=== PATIENT | female | born 1965 | race Caucasian/White ===

== ENCOUNTER 2019-06-13 23:31 | Emergency (ER) | payer BC, SELFPAY ==
[2019-06-13 23:32] VITALS: BP 157/94; PULSE 106; RESP 15; TEMP 36.7; O2SAT 93; BMI 27.7
--- NOTE | 2019-06-13 23:43 | RAD_ITS ---
STUDY: X-RAY - RIGHT WRIST REASON FOR EXAM: Female, 54 years old. Fracture of the distal radius after recent injury. TECHNIQUE: 3 view(s) of the wrist were obtained. COMPARISON: Prior comparison studies are not available for review at this time. FINDINGS: There is demineralization of the radius and ulna. There is an acute comminuted displaced fracture of the distal radial metaphysis. The distal fracture fragments are displaced posteriorly. There is associated fracture of the ulnar styloid. Normal radiocarpal articulation. Normal distal radioulnar articulation. There is demineralization of the carpal bones. Normal carpal articulations. Normal carpometacarpal articulation of the thumb. Normal second through fifth carpometacarpal articulations. There is demineralization of the metacarpal bones. There is soft tissue swelling. RAD/Wrist min 3 Views IMPRESSION: Acute comminuted displaced fracture of distal radius with associated fracture of the ulnar styloid. Electronically Signed: Flor Padilla MD at 0:09 EDT , Service support ,
[2019-06-13 23:46] VITALS: RESP 16
--- NOTE | 2019-06-14 00:16 | ED.DCSUM_ITS ---
- ER Visit Summary Date of Service: 06/14/19 Chief Complaint: [Fall with right wrist injury] History of Present Illness: The patient is a 54 F [presents to the emergency department with complaint of injury to the right wrist. 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 Is right-hand dominant. She denies any other injuries. Patient has been drinking. Patient states that she drank more than she would normally drink. Patient feels intoxicated. Patient has history of rheumatoid arthritis and osteoporosis.] Physical Examination: [HEENT-PERRLA, EOMI. Cranial nerves II through XII grossly intact. TMs clear. Mucous membranes moist. No adenopathy. No external evidence of trauma to her head. No C-spine tenderness on palpation. Cardiovascular-regular rate and rhythm without murmur or ectopy Lungs-clear to auscultation, chest wall stable without crepitus or subcu emphysema Abdomen-normoactive bowel sounds, soft, nontender, no rebound or rigidity, no peritoneal signs. Extremities-intact ?4, normal range of motion, normal pulses. Right wrist- patient has obvious soft tissue swelling with obvious deformity. She is neurovascular intact. She has no open skin noted. Normal range of motion of all digits. No pain at the elbow.] Test Results: [X-rays of the right wrist obtained showed a acute fracture of the distal radius that is comminuted and displaced about 50% dorsally. Patient also has a fracture of the ulnar styloid.] Emergency Department Course and Treatment: [Patient case was discussed with orthopedic surgeon on-call who asked that we splint the patient and have her follow-up with his office in 2 days. I do not feel patient is a candidate for acute sedation given her recent food and alcohol intake.] Patient was placed in a volar splint. Patient was given a sling. She was given a dose of naproxen. Treatment Plan: [Patient to follow-up with orthopedics 2 days.] Disposition: [Discharged home in stable condition] Impression: [Right distal radius and ulna fracture] This note was generated with [employer] dictation software. It may contain incorrect words, spelling, and punctuation that were not noted in review of the chart prior to signing ED Disposition - Plan for ED Patient: Referrals: Earl Vines MD [Primary Care Provider] -
--- NOTE | 2019-06-14 00:19 | ED.DEP ---
ED Disposition - Plan for ED Patient: Instructions: COLLES FRACTURE, Reduction Required Prescriptions: Hydrocodone Bitart/Apap 5-325 [[place] 5MG-325MG] 1 tab PO Q4H PRN PRN 2 Days #20 tab PRN Reason: Pain Prescription Printed Referrals: Earl Vines MD [Primary Care Provider] - Romaine Mccoy DO [STAFF PHYSICIAN] - 06/15/19
[2019-06-14] MEDS: Naproxen 500 MG Tablet PO (00:25)
== END 2019-06-14 00:25 | disposition home or self-care (01) ==
LOC: ED 23:55
PROVIDERS: Emergency Provider Emergency Medicine; Family Provider Family Medicine; PCP Family Medicine
DX: S52.501A Unspecified fracture of the lower end of right radius, initial encounter for closed fracture (principal); S52.611A Displaced fracture of right ulna styloid process, initial encounter for closed fracture; M06.9 Rheumatoid arthritis, unspecified; Z87.891 Personal history of nicotine dependence; W18.30XA Fall on same level, unspecified, initial encounter; Y93.41 Activity, dancing; Y92.89 Other specified places as the place of occurrence of the external cause; Y99.8 Other external cause status
CPT/HCPCS: 73110; 99283

== ENCOUNTER 2019-08-03 16:00 | Outpatient (RCR) | payer BC, SELFPAY ==
--- NOTE | 2019-07-03 09:52 | HP.OTEVAL ---
Patient's Visit Information RICK CONSTANTINO is a 54 year old F, referred to Occupational Therapy by ZACK DE GUZMAN, with a diagnosis of right distal radius fx.. Date of Evaluation: 07/01/19 Occupational Therapist: Gina Ward, OTR/[place], CHT - Subjective Subjective: This 54 year old female was seen for OT eval with dx of right distal radius fracture. Pt states she had a fall on 2018 went to ER and was refered to hand specialist. Pt ended up with sx on 2018. ORIF of right distal radius fx, intraarticular and greater than 3 fragments. Pt has order to initiate gental short arc wrist AROM and progress motion as tolerated-*No lifting/pushing/pulling/weight bearing. Pt states she is limited with her ADLs due to her inability to use her right hand for ADls and IADLS. - ADLs Dressing: Underwear, Bra, Pants, Socks, Shoes Fasteners: Tie shoes, Buttons, Zippers, [place] Eating: Bring food to mouth, Use silverware, Cut food, Drink from glass Bathing: Handle washcloth & soap, Wash hair, Squeeze shampoo bottle Toileting: Manage clothing Grooming: Squeeze toothpaste on, [place] teeth Kitchen: Chop with knife, Peel fruits & vegetables, Open jars, Open bottle caps, Pour from pitcher, Lift saucepan, Take dish out of oven, Place dish in microwave Household: Sweep/mop, Dust, Laundry - Pain right wrist 4 Pain Intensity Range: 1, 6 - ROM Forearm: right supination 30* left WNL Wrist: right 35/30 left 75/80 Opposition: right 4, left 10 ROM Comments: pt demo with limited - Strength Principal Technologist: right NT left 20# Lateral Pinch: right NT left 10# Tripod Pinch: right NT left 10# Strength Comments: strength will be tested at later date - Edema PIP: right 6.0 left 5.4 Other: min. edema - Sensation Sensation Comments: denies - In-Hand Manipulation Finger to Palm Translation: Unable - Right, Normal - Left Palm to Finger Translation: Unable - Right, Normal - Left Shift: Unable - Right, Normal - Left Rotation: Unable - Right, Normal - Left - Quick DASH-Disab of Arm,Shoulder& Hand Quick DASH Score: 85.0000 - Goals Goal:100% adherence to protocol: Yes Comment: ORIF distal radius fx Goal:Daily scar massage when approriate: Yes Goal:ROM equal to unaffected hand: Yes Comment: to return to ind. ADls and IADLs by d/c Goal:Principal Technologist/Pinch strength at least 75% of unaffected hand: Yes Goal:No pain with affected hand use: Yes Goal:PIP Circumferences equal to unaffected hand: Yes Goal:Full use of affected hand in daily activities including: Yes Goal:Decrease scar hypersensitivity: Yes - Rehabilitation General Assessment: pt s/p 2 weeks ORIF of distal radius fx, intraarticular and greater than 3 fragments. Pt has newly healing structure, limited ROM, edema and decreased ability to use her right UE for ADLs and IADLS. Pt would benefit from skilled OT services 1-2x week for 8 weeks. Therapy will initiate gental short arc wrist AROM and progress pt as tolerated. When releases pt for increase activity therapy will initiate 2x week. Today therapist ed. pt on gentle short arch motion, scar mtg, desensitization and edema reduction tech. When appropriate therapy will progress per dr. lund and pts dottie. to return pt to PLOF. pt demo understanding of ex and agree to POC. Rehabilitation Potential: Excellent - Anticipated Interventions Anticipated Interventions: A/AAROM/PROM, Strengthening, Triggerpoint Release, Desensitization, Sensory Retraining, Wound Care, Modalities, Orthoses, Joint Protection/Energy Conservation - Visit Plan Frequency: 1-2x /Week Duration: 2 Months TEXT: Thank you for the opportunity to evaluate your patient. For Medicare and Medicare HMO plans, please review the plan of care and approve it. It will need to be FAXED BACK to us at [phone] for Medicare purposes. Please let me know if there are questions or concerns regarding this plan of care. Physician Signature: Date:
--- NOTE | 2019-10-05 12:28 | HP.OT.NRP ---
HP - Discharge Summary - Patient Information RICK CONSTANTINO was seen in my office for initial evaluation on 07/01/19. The following Plan of Care was established for this patient: Initial Frequency: 1-2x /Week Initial Duration: 2 Months Plan: will return after aug.24 if needed - Anticipated Interventions Anticipated Interventions: A/AAROM/PROM, Strengthening, Triggerpoint Release, Desensitization, Sensory Retraining, Wound Care, Modalities, Orthoses, Joint Protection/Energy Conservation This patient was last seen in our office 08/03/19. Pertinent comments regarding their Occupational therapy will appear below: pt was seen in OT for 6 tx session. Therapy focused on ROM and strength as well as decreasing pain. pt was progressing well with her POC. was last seen 08/03/19. Pt has not scheduled any further apts at this time and D/C due to time lapse in care. At this point I will be discontinuing this patient from occupational therapy. I would be happy to see this patient again in the future if found appropriate by the physician. Thank you! Gina Ward, OTR/L, CHT
== END 2019-08-03 19:00 | disposition home or self-care (01) ==
LOC: OT 16:00
PROVIDERS: Family Provider Family Medicine; PCP Family Medicine
DX: S52.501D Unspecified fracture of the lower end of right radius, subsequent encounter for closed fracture with routine healing (principal)
CPT/HCPCS: 97035; 97110; 97140; 97166

== ENCOUNTER → 2021-05-23 12:08 | Outpatient (CLI) | payer OTHER, SELFPAY ==
--- NOTE | 2021-05-23 12:34 | BD_ITS ---
STUDY: DUAL ENERGY X-RAY ABSORPTIOMETRY / DXA REASON FOR EXAM: Female, 56 years old. Osteoporosis TECHNIQUE: Bone Mineral Density (BMD) measurements of lumbar spine and bilateral hips were obtained. COMPARISON: None. FINDINGS: Lumbar Spine (L1-L4): g/cm2 (0.814) / T-score (-2.1) / Z-score (-1.0) Findings are suggestive of osteopenia with a high fracture risk. Left Femur Total: g/cm2 (0.554) / T-score (-3.2) / Z-score (-2.5) Left Femoral Neck: g/cm2 (0.4-2) / T-score (-3.8) / Z-score (-2.8) Right Femur Total: g/cm2 (0.524) / T-score (-3.4) / Z-score (-2.7) Right Femoral Neck: g/cm2 (0.418) / T-score (-3.9) / Z-score (-2.8) BD/Dexa Bone Density Study IMPRESSION: The patient is considered osteoporotic as outlined below according to World [place] Organization (WHO) criteria with a high fracture risk. Reference Information: The T-score is the number of standard deviations above or below the standard which is normal for young adults at their peak bone mineral density. The World Health Organization (WHO) interprets the T-scores as follows: Above -1 Normal bone density Between -1 and -2.5 Osteopenia Equal to / or below -2.5 Osteoporosis As a practical clinical guideline, osteopenia may be graded as follows: Mild -1 through -1.5 Moderate -1.6 through -2.0 Severe -2.1 through -2.4 The Z-score is the number of standard deviations above or below age-matched controls. A Z-score of less than -1.5 would be considered abnormal. References: 1. NIH Osteoporosis and Related Bone Diseases www osteo.org 2. International Society for Clinical Densitometry www iscd.org 3. National Osteoporosis Foundation www nof.org Electronically Signed: Lukas Aquino MD at 14:22 EDT , Service support ,
[2021-05-23 14:14] LABS: PTHIN 115.6 pg/mL (18.4-80.1)
[2021-05-23 14:17] LABS: T4 Free Direct 0.87 ng/dL (0.76-1.46); Thyroid Stim Hormone (TSH) 3.63 uIU/mL (0.358-3.74); Vitamin D,25 Hydroxy 44.6 ng/mL
[2021-05-25 13:49] LABS: Thyroid Peroxidase AB 367 IU/mL (0-34)
== END ==
PROVIDERS: Referring Provider Surgery; Visit Provider Internal Medicine Endocrinology, Diabetes & Metabolism
DX: M81.0 Age-related osteoporosis without current pathological fracture (principal); E21.3 Hyperparathyroidism, unspecified; E55.9 Vitamin D deficiency, unspecified
CPT/HCPCS: 36415; 77080; 82306; 82310; 83970; 84439; 84443; 86376

== ENCOUNTER → 2021-05-26 09:12 | Outpatient (CLI) | payer OTHER, SELFPAY ==
--- NOTE | 2021-05-26 09:18 | US_ITS ---
INDICATION: hyperparathyroidism EXAMINATION: Ultrasound US Thyroid (eg thyroid, parathyroid, parotid) INDICATION: hyperparathyroidism EXAMINATION: Ultrasound US Thyroid (eg thyroid, parathyroid, parotid) TECHNIQUE: Leger scale and color doppler imaging was performed of the thyroid gland. COMPARISON: None. FINDINGS: RIGHT THYROID LOBE: The right lobe of the thyroid gland is prominent in size demonstrates homogeneous echogenicity with increased vascularity, The right lobe of the thyroid gland measures 5.2 x 2.3 x 2.0 cm Multiple nodules are visualized within the right lobe of the thyroid gland the largest 4 are #1- Location: Upper pole Size: 0.9 x 0.7 x 0.6 cm Composition: 2 Echogenicity: 1 Shape: 0 Margins: 0 Echogenic Foci: 0 Total points 3, TIRADS level TR3 #2- Location: Upper pole Size: 1.5 x 1.4 x 1.2 cm. Composition: 2 Echogenicity: 1 Shape: 0 Margins: 0 Echogenic Foci: 0 Total points 3, TIRADS level TR3 #3- Location: Midpole. Size: 1.7 x 1.7 x 0.9 cm. Composition: 2 Echogenicity: 1 Shape: 0 Margins: 0 Echogenic Foci: 0 Total points 3, TIRADS level TR3 #4- Location: Midpole Size: 0.9 x 0.8 x 0.9 cm . Composition: 2 Echogenicity: 1 Shape: 0 Margins: 0 Echogenic Foci: 0 Total points 3, TIRADS level TR3 LEFT THYROID LOBE: The left lobe of the thyroid gland is unremarkable in size demonstrating heterogeneous echogenicity and increased vascularity. The left lobe of the thyroid gland measures 4.5 x 1.6 x 1.8 cm. 2 nodules are visualized within the left lobe. #5- Location: Lower pole Size: 1.2 x 1.0 x 1.6 cm Composition: 2 Echogenicity: 2 Shape: 0 Margins: 0 Echogenic Foci: 0 Total points 4, TIRADS level TR4 A mixed solid/cystic nodule is visualized in the lower pole of the left lobe demonstrating ovoid configuration and irregular/indistinct margins measuring 1.9 x 1.2 x 1.1 cm. #6- Location: lower pole Size: 0.8 x 0.7 x 0.4 cm Composition: 2 Echogenicity: 2 Shape: 0 Margins: 0 Echogenic Foci: 0 Total points 4, TIRADS level TR4 ISTHMUS: The isthmus demonstrates homogenous echogenicity and measures 0.3 cm in AP diameter. No evidence of nodules within the isthmus. US/Thyroid IMPRESSION: Enlargement of the right lobe of the thyroid gland. A 0.9 cm TR 3 nodule in the upper pole of the right lobe. A 1.5 cm TR 3 nodule in the upper pole of the right lobe. A 1.7 cm TR 3 nodule in the upper pole of the right lobe. A 0.9 cm TR 3 nodule in the upper pole of the right lobe. Mildly suspicious (3 ptsTR3) FNA biopsy if nodule at least 2.5cm; follow if at least 1.5cm at 1, 3 and 5 years A 1.6 cm TR 4 nodule visualized in the midpole of the left lobe. A 0.8 cm TR 4 nodule in the lower pole of the left lobe. Moderately suspicious (4 ptsTR4) FNA biopsy if nodule at least 1.5cm; follow if at least 1.0 cm at 1, 2,3 and 5 years TI-RADS follow up recommendations: TR1: Benign (0pts) No FNA biopsy. TR2: Not suspicious (2 pts) No FNA biopsy. TR3: Mildly suspicious (3 pts) FNA biopsy if nodule at least 2.5cm; follow if at least 1.5cm at 1, 3 and 5 years TR4: Moderately suspicious (4-6 pts) FNA biopsy if nodule at least 1.5cm; follow if at least 1 cm. TR5: Highly suspicious (at least 7 pts) FNA if nodule at least 1cm; follow if at least 0.5cm. Electronically Signed: Harish Miller MD at 12:23 EDT Tel , Service support ,
== END ==
PROVIDERS: Referring Provider Surgery; Visit Provider Surgery
DX: E21.3 Hyperparathyroidism, unspecified (principal)
CPT/HCPCS: 76536

== ENCOUNTER → 2021-06-02 07:47 | Outpatient (CLI) | payer OTHER, SELFPAY ==
--- NOTE | 2021-06-02 07:48 | NM_ITS ---
CLINICAL: 56-year-old female with reported history of clinical hyperparathyroidism. 99m Tc SESTAMIBI DUAL PHASE PLANAR and SPECT-CT PARATHYROID SCINTIGRAPHY COMPARISON: Thyroid ultrasound report 05/26/2021 FINDINGS: Following the intravenous administration of 25.0 mCi of 99m Tc sestamibi, planar image acquisitions of the anterior neck at 20 minutes and approximately 3.0 hours post radiopharmaceutical provision and SPECT reconstructions obtained at 3.0 hours reveal: 1. Immediate static blood pool acquisitions demonstrate relatively uniform distribution of the radiopharmaceutical throughout both lobes of a prominent sized U-shaped thyroid gland. 2. Delayed planar images depict minimal washout of the radiotracer from the previously defined right-left thyroid colloid. There is no focal retention of radiopharmaceutical identified within the [id number]. Emission computed tomographic reconstructions of the anterior neck reveal confirmation of the planar projection findings. NM/Parathyroid Scan IMPRESSION: 1. NEGATIVE 99m Tc SESTAMIBI PLANAR-SPECT PARATHYROID IMAGING DUAL PHASE EXAMINATION. 2. There is no definitive typical scintigraphic evidence of parathyroid adenoma on the present evaluation. Electronically Signed: Ankit Turner DO at 13:54 EDT Tel , Service support ,
== END ==
PROVIDERS: Visit Provider Surgery
DX: E21.3 Hyperparathyroidism, unspecified (principal)
CPT/HCPCS: 78070; A9500

== ENCOUNTER → 2021-06-22 16:12 | Outpatient (CLI) | payer OTHER, SELFPAY ==
--- NOTE | 2021-06-22 | FLU_PTH ---
PATIENT: RICK CONSTANTINO LOC: [facility]#:[id number] AGE/SX: 60/F ROOM: RE06/22/[address]: Dr. Oni Bell MD : 1965 BED: DIS: SPEC #: [id number] RECD: 06/23/21 09:05 STATUS: MAIN COLIN #: [id number] ALFONSO: 06/22/21 00:[address]: Oni Bell DEPT: CYTOLOGY RECD BY: Ned Bates Tissues: A - Thyroid gland, NOS B - Thyroid gland, NOS C - Thyroid gland, NOS D - Thyroid gland, NOS E - Thyroid gland, NOS F - Thyroid gland, NOS G - Thyroid isthmus H - Thyroid isthmus Procedures: Special Stain Group II Surgery Specimen Level IV Cytospin Fluid HEADER OPERATION: Bilateral thyroid fine needle aspiration PRE-OP DIAGNOSIS: Multiple thyroid nodules TISSUE SUBMITTED: A - Right upper thyroid fluid, B - Right upper thyroid x4 slides, C - Right mid thyroid fluid, D - Right mid thyroid x4 slides, E - Left lower mixed thyroid fluid, F - Left lower mixed thyroid x4 slides, G - Left lower thyroid isthmus fluid, H - Left lower thyroid isthmus x4 slides DIAGNOSIS CYTOLOGY A. Fine needle aspiration, right upper thyroid nodule fluid (cytospin and cell block): Adequate for evaluation. Negative, consistent with benign follicular/colloid nodule. B. Fine needle aspiration, right upper thyroid nodule (smears): Adequate for evaluation. Negative, consistent with benign follicular nodule. See comment. C. Fine needle aspiration, right middle thyroid nodule fluid (cytospin and cell block): Negative for malignant cells. Consistent with benign follicular nodule. D. Fine needle aspiration, right middle thyroid nodule (smears): Atypia of undetermined clinical significance. See comment. E. Fine needle aspiration, left lower mixed thyroid fluid (cytospin and cell block): Negative for malignant cells. See comment. F. Fine needle aspiration, left lower mixed thyroid nodule (smears): Nondiagnostic. See comment. G. Fine needle aspiration, left lower thyroid isthmus nodule (cytospin and cell block): Negative for malignant cells. See comment. H. Fine needle aspiration, left lower thyroid isthmus nodule (smears): Nondiagnostic. See comment. AM:seb 06/26/2021 COMMENT B. The evaluation is limited by drying artifact. D. Rare atypical follicular cells are present. Clinical correlation is suggested. E. The specimen primarily contains blood. Clinical correlation is necessary. F. The paucity of follicular cells precludes further evaluation. Clinical correlation is necessary. G. The specimen contains scattered benign follicular cells. Clinical correlation is suggested. H. The paucity of follicular cells precludes further evaluation. Clinical correlation is necessary. CYTOLOGY STUDY Slides are reviewed. CYTOLOGY GROSS A - Received is 30 ml of red cloudy fluid labeled with the patient's name and and designated per the requisition as right upper thyroid. Submitted for cytology preparation including cell block. B - Received are four smears labeled with the patient's name and designated per the requisition as right upper thyroid. Submitted for staining. C - Received is 20 ml of red cloudy fluid labeled with the patient's name and and designated per the requisition as right mid thyroid. Submitted for cytology preparation including cell block. D - Received are four smears labeled with the patient's name and designated per the requisition as right mid thyroid. Submitted for staining. E - Received is 20 ml of red cloudy fluid labeled with the patient's name and and designated per the requisition as left lower mixed thyroid. Submitted for cytology preparation including cell block. F - Received are four smears labeled with the patient's name and designated per the requisition as left lower mixed thyroid. Submitted for staining. G - Received is 10 ml of red cloudy fluid labeled with the patient's name and and designated per the requisition as left lower thyroid isthmus. Submitted for cytology preparation including cell block. H - Received are four smears labeled with the patient's name and designated per the requisition as left lower thyroid isthmus. Submitted for staining. / seb 06/23/2021 TC:? CPT: 12797 x4, 52802 x4, 03857 x4
== END ==
LOC: LABSPEC 16:13
PROVIDERS: Referring Provider Surgery; Visit Provider Surgery
DX: E04.1 Nontoxic single thyroid nodule (principal)
CPT/HCPCS: 88108; 88305; 88313

== ENCOUNTER → 2021-06-29 15:22 | Outpatient (CLI) | payer OTHER, SELFPAY ==
--- NOTE | 2021-06-28 | IMM_PTH ---
PATIENT: RICK CONSTANTINO LOC: [facility]#:[id number] AGE/SX: 60/F ROOM: RE06/29/[address]: Dr. Oni Bell MD : 1965 BED: DIS: SPEC #: [id number] RECD: 07/03/21 12:36 STATUS: MAIN REEsau #: [id number] ALFONSO: 06/28/21 00:[address]: Oni Bell DEPT: IMMUNOHISTOCHEMISTRY RECD BY: Hellen Salazar Tissues: Skin of chest Procedures: P53 (add) Vimentin (add) Pankeratin (initial) MELAN-A (add) S-100 (add) PHYSICIAN & INSTITUTION [place] [id number] SPECIMEN INFORMATION: Tissue Source: Right chest skin lesion Clinical Info: Right chest skin lesion Specimen Number: [id number] CPT code: 08679, 49883 x4 METHODOLOGY: Deparaffinized sections of prefer/formalin-fixed tissue or PAP/DQ stained slides are incubated with monoclonal/polyclonal antibodies/oligonucleotide probes. Localization is made via biotin free immunoperoxidase method. Appropriate controls are performed and reacted as expected. Results on target cell population are indicated in the following table: RESULTS: ANTIBODY / CLONE RESULT AE1-3 (AE1/AE3/PCK26) negative Vimentin (V9) positive Melan A (A103) positive S-100 (4C4.9) positive P53 (DO-7) negative These tests were developed and their performance characteristics determined by [facility]. They may not have been cleared or approved by the U.S. Food and Drug Administration. The FDA has determined that such clearance or approval is not necessary. The above immunohistochemical/dualISH markers are ordered and reviewed by the Pathologist. 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 AM:seb 07/07/21
--- NOTE | 2021-06-28 14:00 | LES_PTH ---
PATIENT: RICK CONSTANTINO LOC: [facility] U#:[id number] AGE/SX: 60/F ROOM: RE06/29/[address]: Dr. 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 See comment. AM:seb 07/07/2021 COMMENT Immunohistochemistry ([id number]) supports the above diagnosis. The findings suggest melanoma (mainly insitu) arising from nevus. The entire melanotic lesion measures 1.2mm and is narrowly excised. The case is reviewed in consultation with Dr. Hardik Bhardwaj of [facility] who concurs with the diagnosis. The complete consultative report is viewable in EMR. Case has been reviewed in consultation with Dr. Noble who concurs with the above diagnosis. LEA:GEOVANNY MICROSCOPIC DESCRIPTION Slides are reviewed. GROSS DESCRIPTION Received in fixative is one container labeled with the patient's name and designated lesion right chest. The specimen consists of a piece of black-white skin measuring 1.2 x 0.6 cm and 0.5 cm in thickness. The specimen is oriented by two suture as follows: long suture - lateral, short suture - superior. The specimen is inked as follows: superior margin - blue, inferior margin - green, lateral tip - yellow and medial tip - black. The skin surface shows a round brown lesion measuring 0.4 cm in greatest dimension. The specimen is serially sectioned and submitted entirely in one cassette. / GEOVANNY:seb 06/30/21 TC:0 CPT: 13576 ADDENDUM ADDENDUM ADDENDUM ADDENDUM ADDENDUM ADDENDUM ADDENDUM ADDENDUM ADDENDUM ADDENDUM ADDENDUM ADDENDUM ADDENDUM ADDENDUM ADDENDUM ADDENDUM ADDENDUM ADDENDUM ADDENDUM ADDENDUM ADDENDUM ADDENDUM ADDENDUM ADDENDUM ADDENDUM ADDENDUM ADDENDUM ADDENDUM 07/25/2021 12:52 ADDENDUM 07/25/2021 12:52 ADDENDUM 07/25/2021 12:52 ADDENDUM 09/15/2021 09:50 ADDENDUM 10/16/2021 10:04 ADDENDUM 07/25/2021 12:52 ADDENDUM 07/25/2021 12:52 MALIGNANT MELANOMA SYNOPTIC REPORT Type of biopsy: Excisional biopsy Malignant melanoma arising from nevus. Macroscopic: Skin ellipse: 1.2 x 0.6 x 0.5 cm Pigmented lesion: 0.4 x 0.4 cm (completely submitted) Growth face: Vertical Breslow depth: At least 1.2mm Ulceration: Absent Dermal mitotic rate: Less than 1 per high power field Regression: Absent Neurotropoism: Absent Lymphvascular invasion: Absent Microsatellites: Absent Tumor infiltrating lymphocytes: Occasional, non-brisk. Margins: Negative PATHOLOGIC STAGE: T1a Nx Mx The above summary is in compliance with [employer] [place] [employer] (CAP) Cancer Protocols Checklist and [place] Joint Committee on Cancer (AJCC), Staging Manual, 8th Ed. The lesion comprises mostly of melanoma in situ arising in association with a nevus. Please see addendum by consulting pathologist from [facility] in EMR. Case has been reviewed in consultation with Dr. Noble who concurs with the above diagnosis. IDC:SJ This addendum is added to incorporate an outside pathology consultation report. The case was examined at [facility] (#[id number]) and the following diagnosis was rendered. Skin, right chest, excisional biopsy: Melanoma arising within a nevus. Please see complete above mentioned consultation report in EMR DECISION DX ? MELANOMA RESULT FROM Aidin Class 1A 31-GEP score = 0.26 Please see complete report in e-chart or EMR
== END ==
LOC: LABSPEC 15:23
PROVIDERS: Referring Provider Surgery; Visit Provider Surgery
DX: L98.9 Disorder of the skin and subcutaneous tissue, unspecified (principal)
CPT/HCPCS: 88305; 88341; 88342

== ENCOUNTER → 2021-07-26 10:00 | Outpatient (CLI) | payer OTHER, SELFPAY ==
--- NOTE | 2021-07-26 10:00 | FLU_PTH ---
PATIENT: RICK CONSTANTINO [facility]: [facility]#:[id number] AGE/SX: 60/F ROOM: RE07/26/[address]: Dr. Oni Bell MD : 1965 BED: DIS: SPEC #: [id number] RECD: 07/27/21 13:31 STATUS: MAIN COLIN #: [id number] ALFONSO: 07/26/21 10:[address]: Oni Bell DEPT: CYTOLOGY RECD BY: Althea Martínez Tissues: A - Thyroid gland, NOS B - Thyroid gland, NOS C - Thyroid gland, NOS D - Thyroid gland, NOS E - Thyroid gland, NOS F - Thyroid gland, NOS Procedures: Special Stain Group II Surgery Specimen Level IV Cytospin Fluid Cytology Other HEADER OPERATION: Thyroid fine needle aspiration PRE-OP DIAGNOSIS: Multiple bilateral thyroid nodules TISSUE SUBMITTED: A ? Right thyroid nodule fluid, B - Right thyroid nodule x4 slides, C ? Left lower pole superficial nodule fluid, D - Left lower pole superficial nodule x4 slides, E ? Left lower pole deep nodule fluid, F - Left lower pole deep nodule x4 slides DIAGNOSIS CYTOLOGY A. Fine needle aspiration, right thyroid nodule fluid (cytospin and cell block): Rare atypical follicular cells present. B. Fine needle aspiration, right thyroid nodule (smears): Adequate for evaluation. Atypia of undetermined clinical significance. C. Fine needle aspiration, left lower pole nodule fluid (cytospin and cell block): Negative for malignant cells. See comment. D. Fine needle aspiration, left lower pole nodule (smears): Adequate for evaluation. See comment. E. Fine needle aspiration, left lower pole deep nodule (cytospin and cell block): Atypical follicular cells of undetermined clinical significance. F. Fine needle aspiration, left lower pole deep nodule (smears): Adequate for evaluation. Atypia of undetermined clinical significance. AM:seb 07/28/2021 COMMENT C. The specimen primarily contains blood. Follicular cells are not identified. Clinical correlation is suggested. Reference is made to the patient's previous cytology ([id number]) in which atypia of undetermined clinical significance was identified in the aspiration from the right middle thyroid nodule. CYTOLOGY STUDY Slides are reviewed. CYTOLOGY GROSS A - Received is 10 ml of red cloudy fluid labeled with the patient's name and and designated per the requisition as right thyroid nodule. Submitted for cytology preparation including cell block. B - Received are four smears labeled with the patient's name and designated per the requisition as right thyroid nodule. Submitted for staining. C - Received is 15 ml of red cloudy fluid labeled with the patient's name and and designated per the requisition as left lower pole superficial thyroid nodule. Submitted for cytology preparation including cell block. D - Received are four smears labeled with the patient's name and designated per the requisition as left lower pole superficial thyroid nodule. Submitted for staining. E - Received is 10 ml of red cloudy fluid labeled with the patient's name and and designated per the requisition as left lower pole deep thyroid nodule. Submitted for cytology preparation including cell block. F - Received are four smears labeled with the patient's name and designated per the requisition as left lower pole deep thyroid nodule. Submitted for staining. / seb 07/27/2021 TC:? CPT: 08761 x3, 79378 x3, 20067 x3
--- NOTE | 2021-07-26 10:00 | FLU_PTH ---
PATIENT: RICK CONSTANTINO LOC: [facility]#:[id number] AGE/SX: 60/F ROOM: RE07/26/[address]: Dr. Oni Bell MD : 1965 BED: DIS: SPEC #: [id number] RECD: 07/27/21 13:31 STATUS: MAIN COLIN #: [id number] ALFONSO: 07/26/21 10:[address]: Oni Bell DEPT: CYTOLOGY RECD BY: Althea Martínez Tissues: A - Thyroid gland, NOS B - Thyroid gland, NOS C - Thyroid gland, NOS D - Thyroid gland, NOS E - Thyroid gland, NOS F - Thyroid gland, NOS Procedures: Special Stain Group II Surgery Specimen Level IV Cytospin Fluid Cytology Other HEADER OPERATION: Thyroid fine needle aspiration PRE-OP DIAGNOSIS: Multiple bilateral thyroid nodules TISSUE SUBMITTED: A ? Right thyroid nodule fluid, B - Right thyroid nodule x4 slides, C ? Left lower pole superficial nodule fluid, D - Left lower pole superficial nodule x4 slides, E ? Left lower pole deep nodule fluid, F - Left lower pole deep nodule x4 slides DIAGNOSIS CYTOLOGY A. Fine needle aspiration, right thyroid nodule fluid (cytospin and cell block): Rare atypical follicular cells present. B. Fine needle aspiration, right thyroid nodule (smears): Adequate for evaluation. Atypia of undetermined clinical significance. C. Fine needle aspiration, left lower pole nodule fluid (cytospin and cell block): Negative for malignant cells. See comment. D. Fine needle aspiration, left lower pole nodule (smears): Inadequate for evaluation. See comment. E. Fine needle aspiration, left lower pole deep nodule (cytospin and cell block): Atypical follicular cells of undetermined clinical significance. F. Fine needle aspiration, left lower pole deep nodule (smears): Adequate for evaluation. Atypia of undetermined clinical significance. AM:seb 07/28/2021 AM:seb 08/22/2021 COMMENT C & D. The specimen primarily contains blood. Follicular cells are not identified. Clinical correlation is suggested. Reference is made to the patient's previous cytology ([id number]) in which atypia of undetermined clinical significance was identified in the aspiration from the right middle thyroid nodule. CYTOLOGY STUDY Slides are reviewed. CYTOLOGY GROSS A - Received is 10 ml of red cloudy fluid labeled with the patient's name and and designated per the requisition as right thyroid nodule. Submitted for cytology preparation including cell block. B - Received are four smears labeled with the patient's name and designated per the requisition as right thyroid nodule. Submitted for staining. C - Received is 15 ml of red cloudy fluid labeled with the patient's name and and designated per the requisition as left lower pole superficial thyroid nodule. Submitted for cytology preparation including cell block. D - Received are four smears labeled with the patient's name and designated per the requisition as left lower pole superficial thyroid nodule. Submitted for staining. E - Received is 10 ml of red cloudy fluid labeled with the patient's name and and designated per the requisition as left lower pole deep thyroid nodule. Submitted for cytology preparation including cell block. F - Received are four smears labeled with the patient's name and designated per the requisition as left lower pole deep thyroid nodule. Submitted for staining. / seb 07/27/2021 TC:? CPT: 90233 x3, 18277 x3, 28962 x3
== END ==
LOC: LABSPEC 07-27 13:21
PROVIDERS: Visit Provider Surgery
DX: E04.1 Nontoxic single thyroid nodule (principal)
CPT/HCPCS: 88108; 88161; 88305; 88313

== ENCOUNTER → 2021-08-14 13:17 | Outpatient (CLI) | payer OTHER, SELFPAY ==
[2021-08-14 13:40] VITALS: BP 128/75; PULSE 65; RESP 16; TEMP 36.6; O2SAT 99
[2021-08-14] MEDS: DENOSUMAB 60 MG/ML SC (13:45)
== END ==
LOC: MEDOUTP 13:18
PROVIDERS: Referring Provider Internal Medicine Endocrinology, Diabetes & Metabolism; Visit Provider Internal Medicine Endocrinology, Diabetes & Metabolism
DX: M81.0 Age-related osteoporosis without current pathological fracture (principal)
CPT/HCPCS: 96372; J0897

== ENCOUNTER 2021-08-21 16:45 | Outpatient (CLI) | payer OTHER, SELFPAY ==
--- NOTE | 2021-08-21 16:54 | CT_ITS ---
STUDY: CT CHEST, ABDOMEN T PELVIS WITH CONTRAST REASON FOR EXAM: Female, 56 years old. INITIAL STAGING-MELANOMA RADIATION DOSAGE (If Supplied By Facility): CTDIvol = ( 11.48 ) mGy, DLP = ( 997.71 ) mGycm TECHNIQUE: Transaxial imaging was performed following intravenous administration of IV 100mL Isovue-300. Individualized dose optimization techniques were used for this CT. COMPARISON: No relevant priors. FINDINGS: CHEST The lungs are normal. There is no demonstrated pleural abnormality. Normal heart and pericardium. Normal mediastinum. Normal hilar regions. Normal unenhanced pulmonary arteries. Normal aorta arch and descending thoracic aorta. Normal osseous structures. There is no demonstrated abnormality of the visualized upper abdomen. ABDOMEN The visualized lung bases are unremarkable. The visualized portions of the heart are within normal limits. Normal liver. Normal gallbladder and extrahepatic biliary system. Normal spleen. Normal pancreas. Normal bilateral adrenal glands. Normal right kidney. Normal left kidney. Normal visualized stomach. Normal small intestine. Normal colon. The appendix is visualized and appears normal. Normal abdominal aorta. Normal inferior vena cava. Normal retroperitoneum. Normal abdominal wall. Mild levoscoliosis lumbar spine with degenerative disc disease. PELVIS Normal urinary bladder. Normal visualized small intestine. Normal visualized colon. There is no pelvic fluid. There is no pelvic lymphadenopathy or mass lesion. Suspect 3 cm fibroid in the fundus of the uterus. Normal visualized pelvic arteries. Normal abdominal wall. Normal osseous structures. CT/CT Chest, Abd, Pel w/Contrast IMPRESSION: No CT evidence of metastatic malignant melanoma. Electronically Signed: Ankit Ramirez MD at 17:33 EST Tel , Service support ,
== END 2021-08-21 23:59 | disposition short-term general hospital (02) ==
LOC: CT 16:52
PROVIDERS: Referring Provider Internal Medicine Medical Oncology; Visit Provider Internal Medicine Medical Oncology
DX: C43.52 Malignant melanoma of skin of breast (principal)
CPT/HCPCS: 71260; 74177; Q9967

== ENCOUNTER 2021-10-12 16:13 | Outpatient (CLI) | payer OTHER, SELFPAY ==
--- NOTE | 2021-10-12 | FLU_PTH ---
PATIENT: RICK CONSTANTINO LOC: [facility] U#:[id number] AGE/SX: 56/F ROOM: RE10/12/[address]: Dr. Oni Bell MD : 1965 BED: DIS: 10/12/2021 SPEC #: [id number] RECD: 10/12/21 16:05 STATUS: MAIN COLIN #: [id number] ALFONSO: 10/12/21 00:[address]: Oni Bell DEPT: CYTOLOGY RECD BY: Ned Bates ENTERED: 10/13/21 08:32 SP TYPE: Fluid OTHR DR: Carolyn Marroquin MD Tissues: A - Thyroid gland, NOS B - Thyroid gland, NOS Procedures: Special Stain Group II Surgery Specimen Level IV Cytospin Fluid Cytology Other HEADER OPERATION: Left thyroid fine needle aspiration PRE-OP DIAGNOSIS: Left thyroid nodule TISSUE SUBMITTED: A ? Left inferior thyroid nodule fluid FNA, B ? Left inferior thyroid nodule x4 slides DIAGNOSIS CYTOLOGY A. Left inferior thyroid nodule, fine needle aspiration (cytospin and cell block): Negative for malignant cells. See comment. B. Left inferior thyroid nodule, fine needle aspiration (smears): Rare benign appearing follicular cells present. See comment. AM:seb 10/16/2021 COMMENT A. The absence of follicular cells precludes further evaluation. Clinical correlation is suggested. B. The paucity of follicular cells precludes further evaluation. Clinical correlation is suggested. CYTOLOGY STUDY Slides are reviewed. CYTOLOGY GROSS A - Received is 40 ml of red cloudy fluid labeled with the patient's name and and designated per the requisition as left inferior thyroid nodule. Submitted for cytology preparation including cell block. B - Received are four smears labeled with the patient's name and designated per the requisition as left inferior thyroid nodule. Submitted for staining. / seb 10/13/2021 TC:5 CPT: 44433, 47422 x2
== END 2021-10-12 23:59 | disposition home or self-care (01) ==
LOC: LABSPEC 16:14
PROVIDERS: PCP Internal Medicine; Visit Provider Surgery
DX: E04.1 Nontoxic single thyroid nodule (principal)
CPT/HCPCS: 88108; 88161; 88305; 88313

== ENCOUNTER 2021-11-23 14:13 | Outpatient (CLI) | payer OTHER, SELFPAY ==
[2021-11-23 15:22] LABS: Calcium,Total 10.1 mg/dL (8.5-10.1)
[2021-11-23 15:36] LABS: Vitamin D,25 Hydroxy 33.5 ng/mL
[2021-11-24 09:15] LABS: PTHIN 120.4 pg/mL (18.4-80.1)
== END 2021-11-23 23:59 | disposition home or self-care (01) ==
PROVIDERS: PCP Internal Medicine; Referring Provider Surgery; Visit Provider Surgery
DX: E21.3 Hyperparathyroidism, unspecified (principal)
CPT/HCPCS: 36415; 82306; 82310; 83970

== ENCOUNTER → 2021-12-05 | Outpatient (CLI) | payer OTHER, SELFPAY ==
[2021-12-05 16:40] LABS: Hematocrit 40.1 % (37-47); Mean Corp Hgb Conc 32.4 g/dL (32-36); Mean Corpuscular Hgb 29.4 pg (27.0-32.0); Mean Corpuscular Volume 90.7 fL (81-99); Mean Platelet Vol. 10.9 fl (6.2-12.0); Platelet Count 233 K/mm3 (150-450); RBC Distribution Width SD 43.3 fl (35.1-43.9); Red Blood Count 4.42 M/mm3 (4.2-5.4); White Blood Count 4.1 K/mm3 (4.4-11.0)
[2021-12-05 17:15] LABS: Anion Gap 3 (5-15); BUN 12 mg/dL (7-18); BUN/Creat Ratio 16.8 RATIO (10-20); Calcium,Total 9.7 mg/dL (8.5-10.1); Chloride 104 mmol/L (98-107); Creatinine, Serum 0.71 mg/dL (0.55-1.02); EST Glomerular Filtration Rate 90 mL/min (>60); Est Glom Filt Rate - Afr Amer 109 mL/min (>60); Glucose 98 mg/dL (74-106); Potassium 4.5 mmol/L (3.5-5.1); Sodium Level 137 mmol/L (136-145)
== END | disposition home or self-care (01) ==
LOC: LAB 16:13
PROVIDERS: PCP Internal Medicine; Referring Provider Anesthesiology; Visit Provider Anesthesiology
DX: Z01.818 Encounter for other preprocedural examination (principal)
CPT/HCPCS: 36415; 80048; 85027

== ENCOUNTER 2021-12-07 05:49 | Day surgery (SDC) | payer OTHER, SELFPAY ==
--- NOTE | 2021-12-05 15:56 | EKG12_ITS ---
Test Reason : PRE-OP Blood Pressure : / mmHG Vent. Rate : 066 BPM Atrial Rate : 066 BPM P-R Int : 128 ms QRS Dur : 080 ms QT Int : 384 ms P-R-T Axes : 049 081 069 degrees QTc Int : 402 ms Normal sinus rhythm Normal ECG Confirmed by SHAQUILLE LOPEZ, LISET ([id number]), video effects editor JAKOB DIEGO ([id number]) on 12/06/2021 9:00:42 AM Referred By: Oni Bell Confirmed By:LISET CORBIN MD
[2021-12-07] VITALS (7 sets, daily range): BP systolic 115–137; BP diastolic 62–80; PULSE 88–112; RESP 16; TEMP 36.8–37.1; O2SAT 94–98; BMI 26.6
--- NOTE | 2021-12-07 | PARA_PTH ---
PATIENT: RICK CONSTANTINO [place] [facility] [place][id number] AGE/SX: 56/F ROOM: RE12/07/[address]: Dr. Oni Bell MD : 1965 BED: DIS: 12/07/2021 SPEC #: [id number] RECD: 12/07/21 09:19 STATUS: MAIN COLIN #: [id number] ALFONSO: 12/07/21 00:[address]: Oni Bell DEPT: SURGICAL PATHOLOGY RECD BY: Hellen Salazar ENTERED: 12/07/21 09:44 SP TYPE: PARATHY OTHR DR: Carolyn Marroquin MD Tissues: A - Parathyroid B - Parathyroid C - Parathyroid D - Parathyroid E - Parathyroid Procedures: Frozen Section (charge) Surgery Specimen Level IV HEADER OPERATION: Parathyroidectomy with PTH and nerve monitoring PRE-OP DIAGNOSIS: Hyperparathyroidism TISSUE SUBMITTED: A - Possible right inferior parathyroid, FS, B - Possible right superior parathyroid, FS, C - Possible right superior parathyroid, FS, D - Possible right superior parathyroid, FS, E - Right superior parathyroid, FS FROZEN SECTION DIAGNOSIS A. Possible right inferior parathyroid tissue, biopsy: Thyroid tissue. B. Possible right superior parathyroid, biopsy: A fragment of adipose tissue. : 12/07/2021 C. Possible right superior parathyroid, biopsy: Thyroid tissue. : 12/07/2021 Case has been reviewed in consultation with Dr. Hale who concurs with the above diagnosis. IDC:DELFINA Barba. Right perithyroidal tissue, biopsy: Thyroid tissue with chronic thyroiditis. E. Right superior parathyroid, biopsy: Hyperplastic parathyroid tissue. : 12/07/2021 Case has been reviewed in consultation with Dr. Noble who concurs with the above diagnosis. IDC:GEOVANNY MICROSCOPIC DIAGNOSIS A. Possible right inferior parathyroid tissue, biopsy: Thyroid tissue. B. Possible right superior parathyroid, biopsy: A fragment of adipose tissue with adjacent minute fragment of thyroid tissue. C. Possible right superior parathyroid tissue, biopsy: Thyroid tissue with chronic inflammation, consistent with chronic lymphocytic thyroiditis. D. Possible right superior parathyroid tissue, biopsy: Thyroid tissue with chronic inflammation, consistent with chronic lymphocytic thyroiditis. E. Right superior parathyroid, biopsy: Hyperplastic parathyroid tissue (0.6 gm). : 12/08/2021 COMMENT Correlation with clinical, radiologic, laboratory findings and appropriate follow up are necessary. Case has been reviewed in consultation with Dr. Hale who concurs with the above diagnosis. IDC:AM MICROSCOPIC DESCRIPTION Slides are reviewed. GROSS DESCRIPTION A - Received fresh for frozen section diagnosis labeled with the patient's name is a specimen designated possible right inferior parathyroid. The specimen consists of a piece of black soft tissue measuring 0.6 x 0.6 x 0.4 cm and weighing 0.1 gm. The entire specimen is submitted for frozen section diagnosis in one cassette. B - Received fresh for frozen section diagnosis labeled with the patient's name is a specimen designated possible right superior parathyroid. The specimen consists of a piece of black soft tissue measuring 0.3 x 0.2 x 0.1 cm and weighing <0.1 gm. The entire specimen is submitted for frozen section diagnosis in one cassette. C - Received fresh for frozen section diagnosis labeled with the patient's name is a specimen designated possible right superior parathyroid. The specimen consists of a piece of black soft tissue measuring 1 x 1 x 0.5 cm and weighing 0.2 gm. The entire specimen is submitted for frozen section diagnosis in one cassette. D - Received fresh for frozen section diagnosis labeled with the patient's name is a specimen designated possible right superior parathyroid. The specimen consists of a piece of black soft tissue measuring 1 x 0.5 x 0.2 cm and weighing 0.1 gm. The entire specimen is submitted for frozen section diagnosis in one cassette. E - Received fresh for frozen section diagnosis labeled with the patient's name is a specimen designated right superior parathyroid. The specimen consists of a nodular piece of black soft tissue measuring 1.5 x 1 x 0.6 cm and weighing 0.6 gm. The specimen is bisected and submitted in two cassettes as follows: 1??frozen section, 2 - rest of the specimen. / GEOVANNY:seb 12/07/2021 TC:3 CPT: 35813 x5, 06653 x5
[2021-12-07] MEDS: Lactated Ringers 1,000 ML 15 ML IV ×2 (06:45→12:51)
--- NOTE | 2021-12-07 07:23 | PCM.HP.BLA ---
History and Physical Date of Admission: 12/07/21 Date of Service: 11/23/21 MR#:[id number]:[id number]: RICK CONSTANTINO #:[id number]:[id number] Provider:Sreedhar Lagunas/Sex: 56/F [facility] Vital Signs 11/23/21 14:51 Height 5 ft 2 in Weight: 147 lb BMI 26.9 BP 155/80 H Blood Pressure Location Rt brachial Position Sitting Respiration 17 Pulse 83 Pulse Source Monitor Temp 97.4 F L Temp Source Temporal Pulse Oximetry (%) 99 Oxygen Delivery Method room air Intake Visit Reasons: UPDATE H & P Chief Complaint: Update H&P for Parathyroidectomy Sap Project Manager Required: No Is patient in pain?: No Allergies amoxicillin Allergy (Mild, Verified 11/23/21 14:55) bodyahces acetaminophen [From Darvocet-N] Adverse Reaction (Mild, Verified 11/23/21 14:55) mood altering propoxyphene [From Darvocet-N] Adverse Reaction (Mild, Verified 11/23/21 14:55) mood altering acrylic Allergy (Mild, Uncoded 06/16/21 14:14) blisters Medications sulfasalazine 1,500 mg PO BID 06/13/19 [History Confirmed 11/23/21] etanercept 50 mg/mL (1 mL) subcutaneous syringe 50 mg SUBCUT QWEEK 01/03/21 [History Confirmed 11/23/21] cholecalciferol (vitamin D3) 125 mcg (5,000 unit) capsule 125 mcg PO DAILY 05/19/21 [History Confirmed 11/23/21] denosumab 60 mg/mL subcutaneous syringe 60 mg SUBCUT U3ISTNAL #1 ml 06/25/21 [Rx Confirmed 11/23/21] PFSH Medical History Arthritis Bone fracture Cancer Hives HTN (hypertension) Hyperparathyroidism Melanoma Memory loss Osteoarthritis Osteoporosis Pneumonia Rheumatoid arthritis Skin cancer UTI (urinary tract infection) Vitamin deficiency Surgical History H/O wrist surgery S/P thyroid biopsy (~06/2021) Family History Grandmother Diabetes Father Heart disease Myocardial infarction, Onset Age: 63 Hypercholesterolemia Mother Hypercholesterolemia Social History Smoking Status: Former smoker alcohol intake: current alcohol intake frequency: holidays/special occasions only substance use type: does not use what type of physical activity do you participate in: none HPI HPI HPI: RICK CONSTANTINO, is a 56 F who presents to the office today for update of her H&P as her last visit was structured around a repeat FNA of left inferior pole thyroid nodule was given a [place] rating of 3 (atypia with undetermined significance) which 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 She states overall her health has been relatively stable. She does note some recent pain with her left knee and requested a dose of prednisone to help her get through the acute pain. She states that she has now been off the prednisone for 2 weeks and experienced some improvement in her left knee discomfort. She presented today prior to clinic for update of her labs to include vitamin D, PTH, and calcium. She admits to me that she has not been very reliable with her vitamin D supplementation and suspects that is likely low. Below is recapitulated for ease of review from prior consultation visits: Regarding patient's diagnosis of primary hyperparathyroidism: They are referred from Dr. Abdon Alves. She presents today for her second visit after initial surgical consultation on 05/19/2021. She has completed the requested labs, localization imaging, and updated her DEXA. She also would like to correct the record that her melanoma excision, previously reported as happening in either 2007 or 2008 was actually in either 1996 or 1997. She also updates me that she is under work-up with rheumatology for some leukopenia thought to be related to her Enbrel therapy. She is due to repeat her labs for this issue on 06/23/2021. Anti-TPO antibodies were positive. Thyroid ultrasound showed numerous thyroid nodules of the bilateral thyroid lobes with 2 nodules given TI-RADS 4 readings in the left thyroid lobe. No parathyroid adenomas were noted. Sestamibi nuclear imaging was read as no definitive typical scintigraphic evidence of parathyroid adenoma. She did undergo SPECT-CT imaging at the [facility] and 2 areas of suspicion for parathyroid adenomas were localized on the right side. These areas measured 0.7 x 0.6 cm and 0.6 x 0.3 cm, respectively. She is working to have these results formally submitted to our office. Patient has a history of osteoporosis first diagnosed in either 2014 or 2015 when a DEXA scan was performed after she experienced difficulty healing and ankle fracture. Patient has history of pathologic fractures?she states that she experienced a wrist fracture in the years following. She states she was merely putting her hand down to catch herself as she fell while dancing and did not immediately know that there was a bone fracture. Patient has no history of kidney stones. Patient has no history of frequent dental caries or chipped teeth. Patient has a history of brittle fingernails. Patient has no history of GERD but does state that she is experience recent constipation. He does admit that she is consuming more dairy in her diet recently. Additional symptoms include: Occultly concentrating (patient states this has been worse over the past 2 to 3 years), mood lability and depression. Patient has no history of prior radiation exposure. Patient has a family history of other endocrinopathies including 2 children with diabetes mellitus and a third who required total thyroidectomy for thyroid cancer. Patient's current labs are calcium: 10.1 mg/dL (05/11/2021) range of 10.1-10.4, Vitamin D: 40 ng/mL (05/11/2021), Ionized calcium: Not available mg/dL, PTH: 105.4 pg/mL (05/11/2021) range of 105.4-147.3 (from 04/22/2020), Phosphorus: [Value] [date] Current medications include: Cholecalciferol 125 mcg daily and etanercept 50 mg weekly (for history of rheumatoid arthritis). Patient has had DEXA imaging in 2014 or 2015, and updated on 05/23/2021 to show osteoporosis with a Z score of -2.8 in the bilateral femoral necks. Patient has not had renal imaging. Patient's surgical history is also remarkable for a melanoma excision of her right lower anterior cervical neck in either 1996 or 1997 (previously reported as 2007 or 2008). She is on able to tell me if there was a concurrent lymphadenectomy performed with this procedure. She does add that following the melanoma excision she experienced a boil at this location that required further intervention. She was previously scheduled for FNA, but underwent wide local excision of a right upper chest melanoma and sentinel lymph node biopsy with Dr. Lamont Arellano of the [facility] on 09/12/2021. Postoperatively, she had significant tenderness given that the surgical field extended above the patient's right clavicle and the right neck. Therefore this biopsy was postponed until today. Notably, the specimen from this prior surgery did not find any positive lymph nodes. Patient states she feels much better today?still with some soreness?like a rug burn with tingling and numbness. However, her mobility is nearly fully intact for range of motion. ROS General General: Yes fatigue; No weight change, appetite, colon cancer, breast cancer or weakness HEENT HEENT: No difficulty swallowing, eye injury, eye surgery, swollen glands or hoarseness Endo Endocrine: Yes thyroid disease; No diabetes mellitus, thyroid cancer, Hair loss, heat intolerance or cold intolerance Musc Musculoskeletal: Yes back problems, arthritis and rheumatoid arthritis; No gout or joint pain Cardio Cardiovascular: Yes high blood pressure; No murmur, pacemaker, heart disease, atrial fibrillation, heart attack, heart stent, palpitations, shortness of breat with exertion or chest pain Psych Psychiatric: Yes anxiety; No depression or hearing voices Resp Respiratory: No shortness of breath, No sleep apnea, No cough, No COPD, No asthma, No emphysema and No wheezing Gastro Gastrointestinal: No abdominal pain, No nausea or vomiting, No diarrhea, Yes constipation, No blood in stool, No acid reflux, No hemorrhoids, No ulcers, No gallbladder problem and No black,tarry stools Bill Hematologic: No blood thinners, No blood disorders, No bleeding, No anemia and No blood clots Neuro Neurologic: No weakness Exam Const General: cooperative, healthy appearing, comfortable and no acute distress Orientation: alert, awake and oriented x3 Neck Lymphatic: no lymphadenopathy noted Other: Well-healed transverse incision (favoring the right side of the neck). No additional lymphadenopathy or tenderness. Ultrasound exam was performed in a limited fashion of the right neck and area of the right thyroid lobe. I was able to identify, as before, a 1.1 x 0.5 cm hypoechoic lesion in the midpole region of the right thyroid lobe that appears wholly separate from the thyroid capsule. This is suspicious for possible normal parathyroid tissue. Assessment and Plan Assessment and Plan (1) Multiple thyroid nodules: Status: Acute Comment: Status post FNA of thyroid nodules x2. However, the last biopsy session FNA of the left inferior pole, deep nodule returned atypia of undetermined significance. She then underwent repeat FNA and genomic sequencing with [facility]. Her genomic sequencing health and safety technician returned as consistent with benign and risk of malignancy was estimated at proximately 4%. Given this reassuring result, I have advised her to plan to address her hyperparathyroidism issues only during surgery. Plan - Dr. Oni Bell MD: We will plan for simple surveillance of patient's thyroid nodules given reassuring biopsy results (2) Hyperparathyroidism: Status: Acute Comment: This is a 56-year-old female with primary hyperparathyroidism diagnosis by biochemical criteria and her history of bone mineral disease dating back to at least 2014. Patient SPECT-CT imaging from outside facility did localize to the right side of the neck. I believe I find a corresponding lesion on bedside ultrasound today. Now the patient's thyroid nodules are better understood, I would plan to proceed for parathyroidectomy (minimally invasive versus 4 gland depending on Intra-Op findings) starting with dissection on the right side of the neck. I will plan for use of associated intraoperative PTH and nerve monitoring. The risks and benefits of surgery were discussed and patient wishes to proceed as described. We will follow up patient's updated lab results and replace any vitamin D as necessary. Plan - Dr. Oni Bell MD: ?Parathyroidectomy with intraoperative PTH and nerve monitoring to be scheduled to the patient's convenience in the next 2 to 3 weeks ?We will follow up patient's recent labs and replace vitamin D as necessary I have re-examined the patient. There are no clinical changes since date of exam. I have patient nor daughter present any questions ahead of the procedure. Preoperative PTH noted at 133 picograms per milliliter. Plan to proceed for parathyroidectomy with intraoperative PTH and nerve monitoring.
[2021-12-07 08:43] LABS: PTHIN 166.7 pg/mL (18.4-80.1)
[2021-12-07 10:53] LABS: PTHIN 150.6 pg/mL (18.4-80.1)
[2021-12-07 11:42] LABS: PTHIN 48.7 pg/mL (18.4-80.1)
[2021-12-07 11:49] LABS: PTHIN 41.4 pg/mL (18.4-80.1)
[2021-12-07 11:51] LABS: PTHIN 35.7 pg/mL (18.4-80.1)
[2021-12-07] MEDS: Bupivacaine 0.25% 30 ML Vial (12:00)
--- NOTE | 2021-12-07 12:14 | OP.PCM_ITS ---
Report of Operation Date of Procedure: 12/07/21 Pre-Operative Diagnosis: Primary hyperparathyroidism Post-Operative Diagnosis: Same Surgery/Procedure Performed:: Parathyroidectomy with intraoperative nerve and PTH monitoring Description of Surgical Findings:: ? Multinodular right lobe of the thyroid ? Normal-appearing right inferior parathyroid adjacent to the inferior thyroid vein, well vascularized ? Normal recurrent laryngeal nerve signal ? Adenomatous parathyroid gland delivered from the tracheoesophageal groove along the superior pole of the right thyroid lobe Surgeon: Oni Bell pharmacist critical care: Lenny Tejeda pharmacist critical care: Gwendolyn Ash Type of Anesthesia: General/Supplemental Anesthesiologist: Arun Maldonado Specimen's removed: 5 frozen sections that were consistent with thyroid tissue, adipose tissue, thyroid tissue, thyroid tissue, and parathyroid tissue, respectively. Drains: None Estimated Blood Loss (mL): 50 Description of Procedure: After appropriate identification in the preoperative holding area the patient was brought to the operating room. Preoperative PTH had been drawn and returned 133mg/dL. No preoperative antibiotics were indicated. Patient was induced with general anesthetic and a NIMS nerve monitoring tube was placed under video laryngoscope visualization to ensure the cords and the tube were in apposition. Electrodes to our nerve monitoring system were connected and the patient's impedance was verified to ensure appropriate function of our monitoring set up. Patient's neck was then prepped and draped in usual sterile fashion. Formal timeout was conducted to confirm the patient and procedure. I began the procedure with a local block along a transverse cervical incision to incorporate patient's prior scar of the right neck and then extended onto the left neck by 2 cm to create a 4 cm long incision. This was deepened down through the dermis to the level of the platysma which was incised with electrocautery. Subplatysmal flaps were raised. Then the strap muscles were divided along the medial raphe. I dissected the strap muscles off the anterior surface of the thyroid and around the thyroid inferior pole of the thyroid first as I thought I identified parathyroid tissue at this location. Indeed, I did encounter a normal-appearing gland in both color and size along the inferior thyroid vein. Moving cephalad, I divided the middle thyroid vein and this afforded retraction of the thyroid gland medially. Prior to continuing any dissection, I elected to split the strap muscles so that I could visualize internal jugular vein laterally for future blood draws of PTH assays. I obtained a blood sample from the right internal jugular vein for a baseline central venous PTH level of 167. Then I returned to the surgical cavity and continued to separate the strap muscles from the lateral border of the right thyroid lobe. There were several nodular structures along the posterior aspect of the right thyroid lobe that appeared to possibly represent subcapsular parathyroid tissue. 3 of the specimens were sent for frozen section and returned thyroid tissue, adipose tissue, and thyroid tissue, respectively. I obtained a PTH draw 15 minutes following the final specimen and this remained elevated at 151. Therefore I proceeded with additional dissection along the superior pole of the right thyroid lobe and summoned my partner, Dr. Tejeda, to the room for a second perspective. As he arrived to the room, I was able to identify the inferior constrictor complex in the esophagus beneath the thyroid, but there appeared to be no further parathyroid candidates. Once he arrived to the room, we worked to further mobilized the superior pole of the thyroid. Posterior to the superior pole, we found another parathyroid candidate and submitted this for frozen section after it from the thyroid gland and placing clips around its pole. Unfortunately, this too returned consistent with thyroid tissue. However, moving more inferiorly I did identify an ovoid structure within the deeper soft tissue and with gentle blunt dissection was able to uncover a hyperpigmented parathyroid adenoma. This was delivered from the surrounding soft tissue with care and a surgical clip was placed across the pole before it was sharply removed. It was passed off the field for permanent section. 5, 10, and 15-minute ex vivo right internal jugular blood draws were obtained. During this time hemostasis was established and the surgical cavity and I obtained a strong signal from our nerve monitor indicating intactness/f unctionality of the recurrent laryngeal nerve on the right. The above blood draws returned a intraoperative PTH trend of 48.7, 41.4, and 35.7. Satisfied with this result, and the patient's hemostasis (after placing a small swatch of Surgicel in the base of the wound cavity), I began closure of the neck. This was done by using a 3-0 Vicryl in a running fashion to close the patient's strap muscles. The platysma was reapproximated with interrupted 3-0 Vicryl. Given the significant amount of retraction required during the procedure, the patient's skin edges exhibited signs of blunt trauma, so I elected to freshen the edges by sharply removing the damaged skin. Selective electrocautery was applied along the dermis to obtain hemostasis. Then the skin was closed in a running subcuticular fashion using 4-0 Monocryl. Steri-Strips and OpSite bandages were applied as a dressing. Patient was awoken from general anesthetic, extubated, and transferred to PACU for ongoing recovery.
--- NOTE | 2021-12-07 12:22 | EX.PCM.DISCH ---
Discharge Instructions Diet Discharge Diet: No restrictions Activity Discharge Activity: May Not Drive (May not drive was difficult to turn head to check blind spots) and May Shower May shower in (days): 1 Ice area for (Minutes): 20 Lifting Restrictions: No lifting greater than 15 pounds for 2 weeks after surgery Dressing / Incision Call your doctor if your incision/area has: Continuous Slow Oozing, Sudden Increased Bleeding, Increased Pain/ Swelling, Increased Redness, Foul Smelling Discharge and Swelling at the incision site Call your doctor if you observe: Numbness or Tingling, Shortness of breath and Uncontrolled pain Remove Dressing in: 1 day (Please leave Steri-Strips intact until they fall off spontaneously or are taken off at your follow-up visit) Cleanse incision/area with: Soap & Water Follow Up Care Please Follow Up With: Oni Bell MD When: 7 to 10 days postop Test Results: Test results from this visit will be discussed in further detail at your follow-up appointment, if applicable. Discharge Plan Admission Primary Reason for Your Visit: Hyperparathyroidism Attending Provider: Oni Bell Primary Care Provider: Carolyn Marroquin Instructions Patient Instructions: Having Parathyroid Surgery Additional Instructions / Restrictions: Patient should be instructed to take an additional calcium tablet or regular strength Tums if experiencing numbness or tingling and notify my office. Discharge Orders/Prescriptions Prescriptions: New calcium carbonate 500 mg calcium (1,250 mg) tablet 500 mg PO TID Qty: 60 RF: 2 Continued Enbrel 50 mg/mL (1 mL) syringe 50 mg subcut TH RF: 0 cholecalciferol (vitamin D3) 125 mcg (5,000 unit) capsule 125 mcg PO DAILY RF: 0 sulfasalazine 500 MG tablet 1,500 mg PO BID RF: 0 denosumab 60 mg/mL syringe 60 mg subcut [id number] Qty: 1 RF: 1 Referrals / Follow Up: Carolyn Marroquin MD [Primary Care Provider] - Disposition Disposition (needs filled in before D/C Order can be placed): Home, Self Care
[2021-12-07] MEDS: Acetaminophen 500 MG Tablet 1000 MG PO (14:38)
== END 2021-12-07 14:52 | disposition home or self-care (01) ==
LOC: SDC 05:50 → AC 05:50 → MS3 12:25
PROVIDERS: PCP Internal Medicine; Referring Provider Surgery; Visit Provider Surgery
PROC: (CPT 60500; principal; 2021-12-07 07:15)
DX: E21.0 Primary hyperparathyroidism (principal); M06.9 Rheumatoid arthritis, unspecified; I10 Essential (primary) hypertension; E06.3 Autoimmune thyroiditis; F32.A Depression, unspecified; M19.90 Unspecified osteoarthritis, unspecified site; M81.0 Age-related osteoporosis without current pathological fracture; Z85.820 Personal history of malignant melanoma of skin; Z79.899 Other long term (current) drug therapy; Z87.891 Personal history of nicotine dependence; Z78.0 Asymptomatic menopausal state
CPT/HCPCS: 60500; 00320; 83970; 88305; 88331; 93005; J7120; J2405

== ENCOUNTER → 2021-12-14 | Outpatient (CLI) | payer OTHER, SELFPAY ==
[2021-12-14 14:24] LABS: Calcium,Total 10.4 mg/dL (8.5-10.1)
== END | disposition home or self-care (01) ==
LOC: PAVLAB 13:58
PROVIDERS: PCP Internal Medicine; Referring Provider Surgery; Visit Provider Surgery
DX: E89.2 Postprocedural hypoparathyroidism (principal)
CPT/HCPCS: 36415; 82310; 83970

== ENCOUNTER → 2022-05-10 | Outpatient (CLI) | payer OTHER, SELFPAY | END | disposition home or self-care (01) | LOC: LABSPEC 10:58 | PROVIDERS: Referring Provider Internal Medicine Medical Oncology; Visit Provider Internal Medicine Medical Oncology | DX: D64.9 Anemia, unspecified (principal) | CPT/HCPCS: 82274 ==